=== PATIENT | male | born 1990 | race American Indian/Alaskan Native ===

== ENCOUNTER 2022-04-19 14:19 | Emergency (ER) | payer SELFPAY ==
--- NOTE | 2022-04-19 21:56 | XRay Report ---
CHEST 2 VIEWS INDICATION / CLINICAL INFORMATION: Chest Pain. FINDINGS: SUPPORT DEVICES: None. HEART / MEDIASTINUM: No significant abnormality. LUNGS / PLEURA: No significant pulmonary or pleural abnormality. No pneumothorax. ADDITIONAL FINDINGS: No significant additional findings. IMPRESSION: 1. No acute findings. Signer Name: Anjum Nugent MD Signed: 04/19/2022 9:51 PM Workstation Name: [id number]
[2022-04-19 22:22] LABS: Hematocrit 45.3 % (35.5-45.6); Hemoglobin 14.3 gm/dl (11.8-15.2); Mean Corpuscular HGB Conc 32 % (32-34); Mean Corpuscular Volume 82 fl (84-94); Platelet Count 359 K/mm3 (140-440); Red Blood Count 5.54 M/mm3 (3.65-5.03); Red Cell Distribution Width 14.9 % (13.2-15.2)
[2022-04-19 22:37] LABS: Alanine Aminotransferase 18 units/L (7-56); Albumin 4.6 g/dL (3.9-5); BUN/Creatinine Ratio 7; Blood Urea Nitrogen 8 mg/dL (9-20); Calcium 10.2 mg/dL (8.4-10.2); Hemolysis Index 5
--- NOTE | 2022-04-19 23:17 | Emergency Department Report ---
ED Palpitations HPI - General Chief Complaint: Chest Pain Stated Complaint: CHEST PAIN Time Seen by Provider: 04/19/22 21:08 Source: patient Mode of arrival: Ambulatory Limitations: No Limitations - History of Present Illness Initial Comments: 32-year-old male elevated BMI presents emerged [place] complaining of developing [place] chest discomfort and palpitations on yesterday of unknown etiology. When symptoms have presented to 3 times a day lasted for a matter of minutes. Reports no hemoptysis no hematuria hematochezia, no chest pain or palpitations, no fever, chills, sweats. MD Complaint: "skipped beats", palpitations -: Gradual Associated Symptoms: denies other symptoms. denies: shortness of breath, syncope, near-syncope, nausea/vomiting, parasthesias, feeling of impending doom - Related Data Allergies Allergy/AdvReac Type Severity Reaction Status Date / Time No Known Allergies Allergy Verified 04/19/22 14:34 ED Review of Systems ROS: Stated complaint: CHEST PAIN Other details as noted in HPI Comment: All other systems reviewed and negative Constitutional: denies: chills, fever Eyes: denies: eye pain, eye discharge, vision change ENT: denies: ear pain, throat pain Respiratory: denies: cough, shortness of breath, wheezing Cardiovascular: denies: chest pain, palpitations Endocrine: no symptoms reported Gastrointestinal: denies: abdominal pain, nausea, diarrhea Genitourinary: denies: urgency, dysuria Musculoskeletal: denies: back pain, joint swelling, arthralgia Skin: denies: rash, lesions Neurological: denies: headache, weakness, paresthesias Psychiatric: denies: anxiety, depression Hematological/Lymphatic: denies: easy bleeding, easy bruising ED Past Medical Hx - Social History Smoking Status: Never Smoker Substance Use Type: None ED Physical Exam - General Limitations: No Limitations General appearance: alert, in no apparent distress - Head Head exam: Present: atraumatic, normocephalic - Eye Eye exam: Present: normal appearance, PERRL, EOMI Pupils: Present: normal accommodation - ENT ENT exam: Present: normal exam, normal orophraynx, mucous membranes moist, TM's normal bilaterally - Neck Neck exam: Present: normal inspection - Respiratory Respiratory exam: Present: normal lung sounds bilaterally. Absent: respiratory distress - Cardiovascular Cardiovascular Exam: Present: regular rate, normal rhythm. Absent: systolic murmur, diastolic murmur, rubs, gallop - GI/Abdominal GI/Abdominal exam: Present: soft, normal bowel sounds - Rectal Rectal exam: Present: deferred - Extremities Exam Extremities exam: Present: normal inspection - Back Exam Back exam: Present: normal inspection - Neurological Exam Neurological exam: Present: alert, oriented X3 - Psychiatric Psychiatric exam: Present: normal affect, normal mood - Skin Skin exam: Present: warm, dry, intact, normal color. Absent: rash ED Course Vital Signs 04/19/22 14:31 Temperature 97.4 F L Pulse Rate 85 Respiratory 18 Rate Blood Pressure 138/82 O2 Sat by Pulse 97 Oximetry ED Medical Decision Making - Lab Data Result diagrams: 04/19/22 22:01 04/19/22 22:01 - Radiology Data [facility] [address] [place] [address] XRay Report Signed Patient: ULISSES BARRIENTOS JR MR#: [id number] : 1990 Acct:[id number] Age/Sex: 32 / M ADM Date: 04/19/22 Loc: ED Attending Dr: Ordering Physician: STEVEN ASHBY Date of Service: 04/19/22 Procedure(s): XR chest routine 2V Accession Number(s): [id number] cc: STEVEN ASHBY Fluoro Time In Minutes: CHEST 2 VIEWS INDICATION / CLINICAL INFORMATION: Chest Pain. FINDINGS: SUPPORT DEVICES: None. HEART / MEDIASTINUM: No significant abnormality. LUNGS / PLEURA: No significant pulmonary or pleural abnormality. No pneumothorax. ADDITIONAL FINDINGS: No significant additional findings. IMPRESSION: 1. No acute findings. Signer Name: Anjum Nugent MD Signed: 04/19/2022 9:51 PM Workstation Name: [id number] Transcribed By: Dictated By: Anjum Nugent MD Electronically Authenticated By: Anjum Nugent MD Signed Date/Time: 04/19/222150 DD/ 50 TD/TT: - Medical Decision Making Patient presents to emergency department with palpitations and ECG is noted to be indicative of a normal sinus rhythm. Palpitations are unlikely secondary to other concomitant causes such as pulmonary embolus or acute coronary syndrome. The immediate cause is not apparent. Potential causes considered include but are not limited to infection, hypothyroidism, bone embolism, pericarditis, dehydration, anemia, pheochromocytoma, drug and alcohol withdrawal or intoxication among other things. Despite the evaluation including history, examination, testing, the cause of the palpitations remains unclear however the history, exam, the chest do not raise concern for any of the aforementioned diagnoses. Disposition; during emergency stay the patient's vital signs and symptoms were stable concerning Critical care attestation.: If time is entered above; I have spent that time in minutes in the direct care of this critically ill patient, excluding procedure time. ED Disposition Clinical Impression: Palpitations Disposition: HOME / SELF CARE / HOMELESS Is pt being admited?: No Does the pt Need Aspirin: No Condition: Stable Instructions: Palpitations Additional Instructions: You were evaluated emergency department today for chest pain. Your evaluation has shown no medicals conditions requiring emergent intervention at this time, however recommend that you follow-up with your primary care physician or your rn or lpn soon as possible for further testing as an outpatient. Please schedule an appointment for follow-up with your primary care physician as soon as possible. Return to emergency department if you expands worsening uncontrolled chest pain, shortness of breath, lightheadedness, feeling faint, nausea, vomiting or any other concerning symptoms. Referrals: HALEIGH HAYNES MD [Staff Physician] - 3-5 Days
[2022-04-20 00:15] VITALS: BP 132/76
[2022-04-20 02:49] LABS: Basophils % (Manual) 0 % (0.0-1.8); Hypochromasia 1+; Platelet Estimate Consistent w Auto; Total Cells Counted 100
--- NOTE | 2022-04-20 11:21 | Electrocardiograph Report ---
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
--- NOTE | 2022-04-21 10:34 | Electrocardiograph Report ---
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
== END 2022-04-20 00:05 | disposition home or self-care (01) ==
LOC: ED 14:19
DX: R00.2 Palpitations (principal)
CPT/HCPCS: 36415; 71046; 80053; 85007; 85025; 93005; 99283

== ENCOUNTER 2022-04-22 01:40 | Emergency (ER) | payer SELFPAY ==
[2022-04-22 03:59] VITALS: BP 130/90
--- NOTE | 2022-04-22 04:51 | XRay Report ---
CHEST 2 VIEWS INDICATION / CLINICAL INFORMATION: Chest pain. Left arm numbness. COMPARISON: 2 views of the chest from 04/19/2022. FINDINGS: SUPPORT DEVICES: None. HEART / MEDIASTINUM: No significant abnormality. LUNGS / PLEURA: No significant pulmonary abnormality. No significant pleural effusion. No pneumothora x. ADDITIONAL FINDINGS: No significant additional findings. IMPRESSION: 1. No acute abnormality of the chest. Signer Name: Joce Fuentes MD Signed: 04/22/2022 4:47 AM Workstation Name: [id number]
[2022-04-22 08:59] LABS: Hematocrit 43.8 % (35.5-45.6); Hemoglobin 14.2 gm/dl (11.8-15.2); Mean Corpuscular HGB Conc 33 % (32-34); Mean Corpuscular Volume 81 fl (84-94); Platelet Count 323 K/mm3 (140-440); Red Cell Distribution Width 14.9 % (13.2-15.2)
[2022-04-22 09:20] LABS: BUN/Creatinine Ratio 15; Blood Urea Nitrogen 17 mg/dL (9-20); Calcium 9.5 mg/dL (8.4-10.2); Hemolysis Index 6
--- NOTE | 2022-04-22 10:57 | Emergency Department Report ---
ED General Adult HPI - General Chief complaint: Chest Pain Stated complaint: CHEST PAIN PUI?: No Time Seen by Provider: 04/22/22 06:46 Source: patient Mode of arrival: Stretcher Limitations: No Limitations - Related Data Allergies Allergy/AdvReac Type Severity Reaction Status Date / Time No Known Allergies Allergy Verified 04/19/22 14:34 ED Review of Systems ROS: Stated complaint: CHEST PAIN Other details as noted in HPI Comment: All other systems reviewed and negative ED Past Medical Hx - Past Medical History Previous Medical History?: Yes Additional medical history: Obesity - Surgical History Past Surgical History?: Yes - Family History Family history: no significant - Social History Smoking Status: Never Smoker Substance Use Type: None ED Physical Exam - General Limitations: No Limitations General appearance: alert, in no apparent distress - Head Head exam: Present: atraumatic, normocephalic - Eye Eye exam: Present: normal appearance - ENT ENT exam: Present: mucous membranes moist - Neck Neck exam: Present: normal inspection - Respiratory Respiratory exam: Present: normal lung sounds bilaterally. Absent: respiratory distress - Cardiovascular Cardiovascular Exam: Present: regular rate, normal rhythm. Absent: systolic murmur, diastolic murmur, rubs, gallop - GI/Abdominal GI/Abdominal exam: Present: soft, normal bowel sounds - Rectal Rectal exam: Present: deferred - Extremities Exam Extremities exam: Present: normal inspection - Back Exam Back exam: Present: normal inspection - Neurological Exam Neurological exam: Present: alert, oriented X3 - Psychiatric Psychiatric exam: Present: normal affect, normal mood - Skin Skin exam: Present: warm, dry, intact, normal color. Absent: rash ED Course Vital Signs 04/22/22 01:41 Temperature 98 F Pulse Rate 92 H Respiratory 18 Rate Blood Pressure 130/90 O2 Sat by Pulse 99 Oximetry ED Medical Decision Making - Lab Data Result diagrams: 04/22/22 07:38 04/22/22 07:38 - EKG Data EKG shows normal: sinus rhythm Rate: normal - EKG Data When compared to previous EKG there are: no significant change Interpretation: no acute changes - Radiology Data Radiology results: report reviewed, image reviewed - Medical Decision Making Labs 04/22/22 04/22/22 04/22/22 07:38 07:38 07:38 WBC 9.2 RBC 5.40 H Hgb 14.2 Hct 43.8 MCV 81 L MCH 26 L MCHC 33 RDW 14.9 Plt Count 323 D-Dimer 135.00 Sodium 139 Potassium 4.1 Chloride 102.7 Carbon Dioxide 27 Anion Gap 13 BUN 17 Creatinine 1.1 Estimated GFR > 60 BUN/Creatinine Ratio 15 Glucose 97 Calcium 9.5 Troponin T < 0.010 Vital Signs 04/22/22 01:41 Temperature 98 F Pulse Rate 92 H Respiratory 18 Rate Blood Pressure 130/90 O2 Sat by Pulse 99 Oximetry Critical care attestation.: If time is entered above; I have spent that time in minutes in the direct care of this critically ill patient, excluding procedure time. ED Disposition Clinical Impression: Atypical chest pain Disposition: HOME / SELF CARE / HOMELESS Is pt being admited?: No Does the pt Need Aspirin: No Condition: Stable Instructions: Nonspecific Chest Pain, Adult Additional Instructions: follow up with pcp and heart MD referrals below all studies normal today Referrals: JUANY PLATA MD [Staff Physician] - 3-5 Days TANVIR NUNEZ MD [Staff Physician] - 3-5 Days Forms: Work/School Release Form(ED) Time of Disposition: 10:57
== END 2022-04-22 11:50 | disposition home or self-care (01) ==
LOC: ED 01:40
DX: R07.89 Other chest pain (principal); Z98.890 Other specified postprocedural states
CPT/HCPCS: 36415; 71046; 80048; 84484; 85027; 85379; 93005; 99284